=== PATIENT | male | born 1990 | race Caucasian/White ===

== ENCOUNTER 2018-03-21 06:00 | Inpatient (IN) | payer OTHER ==
[~2018-03-21] VITALS: Ht 165.1 cm; Wt 81.6 kg
[2018-03-21 06:10] VITALS: BP_SYST 139
[2018-03-21] MEDS ORDERED: LORazepam 1 MG TABLET PO ONE (06:45)
[2018-03-21] MEDS ORDERED: FOLIC ACID 1 MG, THIAMINE HCL 100 MG, MAGNESIUM SULFATE 1 GM, MVI 10 ML in NACL 0.9% 1,... IV ONE (06:45)
[2018-03-21 06:56] LABS: BILIRUBIN,URINE NEGATIVE (NEGATIVE); BLOOD, URINE 1+ (NEGATIVE); CLARITY/URINE CLEAR (CLEAR); COLOR,URINE YELLOW (YELLOW); GLUCOSE,URINE NEGATIVE (NEGATIVE); KETONES,URINE NEGATIVE (NEGATIVE); LEUKOCYTE ESTERASE ,URINE NEGATIVE (NEGATIVE); NITRITE, URINE NEGATIVE (NEGATIVE); PROTEIN URINE 1+ (NEGATIVE); UROBILINOGEN,URINE 0.2 (0.2-1.0)
[2018-03-21 07:06] LABS: BACTERIA,URINE FEW /HPF (None Seen); RBC,URINE 0-3 /HPF (0-3); WBC,URINE 0-3 /HPF (0-3)
[2018-03-21 07:07] LABS: MUCUS,URINE None Seen /LPF (None Seen)
[2018-03-21 07:12] LABS: BARBITURATE, URINE NEGATIVE (NEG <=200); BENZODIAZEPINE, URINE POSITIVE (NEG <=150); CANNABINOID, URINE NEGATIVE (NEG <=50); COCAINE, URINE NEGATIVE (NEG <=150); METHAMPHETAMINES SCREEN,URINE NEGATIVE (NEG <=500); OPIATE, URINE NEGATIVE (NEG <=100); PHENCYCLIDINE SCREEN,URINE NEGATIVE (NEG <=25); UR TRICYCLIC ANTIDEPRESSANTS NEGATIVE (NEG <=300); URINE AMPHETAMINE NEGATIVE (NEG <=500); URINE METHADONE NEGATIVE (NEG <=200); URINE OXYCODONE SCREEN NEGATIVE (NEG <=100); URINE PROPOXYPHENE SCREEN NEGATIVE (NEG <=300)
[2018-03-21 07:12] LABS: BASOPHILS # (AUTO) 0.1 K/uL (0.0-0.2); BASOPHILS % (AUTO) 1.8 % (0.0-2.0); EOSINOPHILS # (AUTO) 0.2 K/uL (0.0-0.4); EOSINOPHILS % (AUTO) 3.1 % (0.0-4.0); HEMATOCRIT 50.7 % (36-54); HEMOGLOBIN 17.2 g/dL (14.0-18.0); LYMPHOCYTES # (AUTO) 1.6 K/uL (1.0-5.5); LYMPHOCYTES % (AUTO) 24.8 % (20.5-51.5); MEAN CORPUSCULAR HEMOGLOBIN 33 pg (27-31); MEAN CORPUSCULAR HGB CONC 34 % (32-36); MEAN CORPUSCULAR VOLUME 96 fL (79.0-98.0); MONOCYTES # (AUTO) 0.9 K/uL (0.0-1.0); MONOCYTES % (AUTO) 14.7 % (1.7-9.3); NEUTROPHILS # (AUTO) 3.6 K/uL (1.8-7.7); NEUTROPHILS % (AUTO) 55.6 % (40.0-70.0); PLATELET COUNT (AUTO) 186 K/uL (130-430); RED BLOOD CELL COUNT(AUTO) 5.26 MIL/uL (4.2-6.2); WHITE BLOOD COUNT (AUTO) 6.4 K/uL (4.8-10.8)
[2018-03-21 07:40] LABS: PROTHROMBIN TIME 9.8 SECS (9.5-12.5)
[2018-03-21 07:44] LABS: ANION GAP 11 (5-15); GLUCOSE 102 mg/dL (70-99); POTASSIUM 3.3 mmol/L (3.5-5.1); SODIUM SERUM 143 mmol/L (136-145)
[2018-03-21 07:45] LABS: ACETAMINOPHEN < 1 ug/mL (1-30)
[2018-03-21 07:47] LABS: ALANINE AMINOTRANSFERASE 66 U/L (12-78); ALBUMIN 3.4 g/dL (3.4-4.8); ASPARTATE AMINOTRANSFERASE 90 U/L (10-37); TOTAL BILIRUBIN 0.4 mg/dL (0.0-1.0)
[2018-03-21 07:51] LABS: CHLORIDE 104 mmol/L (98-107)
[2018-03-21 07:52] LABS: CALCIUM 8.6 mg/dL (8.4-11.0); CREATININE 0.95 mg/dL (0.55-1.30); GFR AFRICAN AMERICAN 120 mL/min (>90); UREA NITROGEN, BLOOD 5 mg/dL (8-21)
[2018-03-21 07:56] LABS: ALCOHOL, BLOOD 357 mg/dL (<10)
[2018-03-21 12:43] VITALS: BP_SYST 127
[2018-03-21] MEDS: D5NS 1,000 ML IV SCH ×2 (13:50→21:57)
[2018-03-21] MEDS: chlordiazePOXIDE HCL 25 MG CAPSULE PO SCH ×2 (14:25→21:53)
[2018-03-21 14:50] VITALS: BP_SYST 127
[2018-03-21 16:01] VITALS: BP_SYST 119
[2018-03-21] MEDS ORDERED: OXYMETAZOLINE HCL 0.05% NASAL SPRAY NS PRN (16:45)
[2018-03-21] MEDS ORDERED: DOCUSATE SODIUM 100 MG CAPSULE PO PRN (18:00)
[2018-03-21] MEDS ORDERED: ZOLPIDEM TARTRATE 5 MG TABLET PO PRN (18:00)
[2018-03-21] MEDS ORDERED: ACETAMINOPHEN 325 MG TABLET PO PRN (18:00)
[2018-03-21] MEDS ORDERED: MUPIROCIN 2% TOPICAL OINTMENT 22 GM NS PRN (18:00)
[2018-03-21] MEDS ORDERED: MAGNESIUM SULFATE 50 ML IV PRN (18:00)
[2018-03-21] MEDS ORDERED: MORPHINE 2 MG/ML INJ. SYRINGE IVP PRN ×2 (18:00)
[2018-03-21] MEDS: LORazepam 2 MG/ML VIAL IVP PRN (20:29)
[2018-03-21 20:33] VITALS: BP_SYST 128
[2018-03-21] MEDS: ONDANSETRON HCL 4 MG/2 ML VIAL IVP PRN (21:52)
[2018-03-22 00:06] VITALS: BP_SYST 124
[2018-03-22] MEDS: LORazepam 2 MG/ML VIAL IVP PRN ×2 (01:11→22:05)
[2018-03-22 06:06] LABS: CALCIUM 8.3 mg/dL (8.4-11.0); CREATININE 0.65 mg/dL (0.55-1.30); POTASSIUM 3.3 mmol/L (3.5-5.1)
[2018-03-22 06:10] LABS: EOSINOPHILS # (AUTO) 0.1 K/uL (0.0-0.4); LYMPHOCYTES # (AUTO) 0.7 K/uL (1.0-5.5); MEAN CORPUSCULAR HEMOGLOBIN 32 pg (27-31); RED CELL DISTRIBUTION WIDTH 14.3 % (9.0-15.0)
[2018-03-22] MEDS: D5NS 1,000 ML IV SCH ×2 (06:35→15:09)
[2018-03-22 06:55] LABS: HEMATOCRIT 43.3 % (36-54); HEMOGLOBIN 14.6 g/dL (14.0-18.0); RED BLOOD CELL COUNT(AUTO) 4.56 MIL/uL (4.2-6.2); WHITE BLOOD COUNT (AUTO) 4.7 K/uL (4.8-10.8)
[2018-03-22 06:56] LABS: BASOPHILS % (AUTO) 0.6 % (0.0-2.0); LYMPHOCYTES % (AUTO) 15.4 % (20.5-51.5); MEAN CORPUSCULAR HGB CONC 34 % (32-36); MEAN CORPUSCULAR VOLUME 95 fL (79.0-98.0); MONOCYTES # (AUTO) 0.8 K/uL (0.0-1.0); NEUTROPHILS # (AUTO) 3.1 K/uL (1.8-7.7); PLATELET COUNT (AUTO) 133 K/uL (130-430)
[2018-03-22 07:58] VITALS: BP_SYST 143
[2018-03-22] MEDS: POTASSIUM CHLORIDE 20 MEQ TAB.PRT.SR PO PRN (08:30)
[2018-03-22] MEDS: chlordiazePOXIDE HCL 25 MG CAPSULE PO SCH ×3 (08:30→20:47)
[2018-03-22] MEDS: ONDANSETRON HCL 4 MG/2 ML VIAL IVP PRN (08:32)
[2018-03-22 16:15] VITALS: BP_SYST 138
[2018-03-22 20:00] VITALS: BP_SYST 135
[2018-03-23] VITALS: BP_SYST 132
[2018-03-23] MEDS: D5NS 1,000 ML IV SCH ×3 (00:28→14:00)
[2018-03-23] MEDS: LORazepam 2 MG/ML VIAL IVP PRN (04:31)
[2018-03-23 06:28] LABS: BASOPHILS % (AUTO) 0.6 % (0.0-2.0); EOSINOPHILS # (AUTO) 0.1 K/uL (0.0-0.4); EOSINOPHILS % (AUTO) 1.8 % (0.0-4.0); HEMATOCRIT 47.2 % (36-54); HEMOGLOBIN 15.6 g/dL (14.0-18.0); LYMPHOCYTES # (AUTO) 0.8 K/uL (1.0-5.5); LYMPHOCYTES % (AUTO) 14.9 % (20.5-51.5); MEAN CORPUSCULAR HEMOGLOBIN 32 pg (27-31); MEAN CORPUSCULAR HGB CONC 33 % (32-36); MEAN CORPUSCULAR VOLUME 97 fL (79.0-98.0); MONOCYTES # (AUTO) 0.9 K/uL (0.0-1.0); MONOCYTES % (AUTO) 17.4 % (1.7-9.3); NEUTROPHILS # (AUTO) 3.6 K/uL (1.8-7.7); NEUTROPHILS % (AUTO) 65.3 % (40.0-70.0); PLATELET COUNT (AUTO) 136 K/uL (130-430); RED BLOOD CELL COUNT(AUTO) 4.86 MIL/uL (4.2-6.2); RED CELL DISTRIBUTION WIDTH 14.5 % (9.0-15.0); WHITE BLOOD COUNT (AUTO) 5.4 K/uL (4.8-10.8)
[2018-03-23 06:55] LABS: CALCIUM 8.6 mg/dL (8.4-11.0); CREATININE 0.71 mg/dL (0.55-1.30); POTASSIUM 3.2 mmol/L (3.5-5.1)
[2018-03-23] MEDS: POTASSIUM CHLORIDE 20 MEQ TAB.PRT.SR PO PRN (08:34)
[2018-03-23] MEDS: chlordiazePOXIDE HCL 25 MG CAPSULE PO SCH ×2 (08:40→14:30)
[2018-03-23] MEDS ORDERED: CITALOPRAM HYDROBROMIDE 20 MG TABLET PO SCH (09:00)
[2018-03-23 12:04] VITALS: BP_SYST 138
[2018-03-23] MEDS ORDERED: NALT50TA PO (14:28)
[2018-03-23 15:51] VITALS: BP_SYST 138
[2018-03-23 16:01] VITALS: BP_SYST 125
== END 2018-03-23 16:30 | disposition home or self-care (01) | DRG 42 ==
LOC: SED 06:00 → STU 11:48
PROVIDERS: ADMIT General Practice; ATTEND General Practice
DX: G31.2 Degeneration of nervous system due to alcohol (principal); F33.2 Major depressive disorder, recurrent severe without psychotic features; R45.851 Suicidal ideations; E87.6 Hypokalemia; F41.1 Generalized anxiety disorder; I10 Essential (primary) hypertension; F10.239 Alcohol dependence with withdrawal, unspecified; Z91.19 Patient's noncompliance with other medical treatment and regimen
CPT/HCPCS: 36415; 80048; 80053; 80307; 81000-TC; 83036; 83735-TC; 85025; 85610-TC; 93005; 96365; 96366; 99285; G0480; G0481; G0482; J2060; J2405; J3411; J3475; J3490; J7030; J7042

== ENCOUNTER 2018-04-24 22:40 | Emergency (ER) | payer OTHER ==
[~2018-04-24] VITALS: Ht 165.1 cm; Wt 79.4 kg
[~2018-04-24 22:40] MED LIST: NALT50TA PO
[2018-04-24 22:41] VITALS: BP_SYST 149
[2018-04-24] MEDS: LORazepam 2 MG/ML VIAL (FOR ER USE) IVP ONE (23:21)
[2018-04-24] MEDS: NACL 0.9% 1,000 ML IV ONE (23:21)
[2018-04-24] MEDS: KETOROLAC TROMETHAMINE 30 MG VIAL IVP ONE (23:22)
[2018-04-25] MEDS: LORazepam 2 MG/ML VIAL (FOR ER USE) IVP ONE (01:12)
[2018-04-25 01:30] VITALS: BP_SYST 118
== END 2018-04-25 01:30 | disposition home or self-care (01) ==
LOC: SED 22:40
DX: F10.239 Alcohol dependence with withdrawal, unspecified (principal); R00.2 Palpitations; M79.10 Myalgia, unspecified site
CPT/HCPCS: 93005; 96361; 96374; 96375; 96376; 99283; J1885; J2060 ×2; J7030

== ENCOUNTER 2018-05-02 04:28 | Emergency (ER) | payer OTHER ==
[~2018-05-02] VITALS: Ht 165.1 cm; Wt 71.7 kg
[2018-05-02 04:28] VITALS: BP_SYST 132
[2018-05-02 05:06] LABS: BILIRUBIN,URINE NEGATIVE (NEGATIVE); BLOOD, URINE 1+ (NEGATIVE); CLARITY/URINE CLEAR (CLEAR); COLOR,URINE YELLOW (YELLOW); GLUCOSE,URINE NEGATIVE (NEGATIVE); KETONES,URINE NEGATIVE (NEGATIVE); LEUKOCYTE ESTERASE ,URINE NEGATIVE (NEGATIVE); NITRITE, URINE NEGATIVE (NEGATIVE); PH,URINE 7.5 (5.0-8.0); PROTEIN URINE NEGATIVE (NEGATIVE); UROBILINOGEN,URINE 0.2 (0.2-1.0)
[2018-05-02 05:16] LABS: BACTERIA,URINE FEW /HPF (None Seen); MUCUS,URINE None Seen /LPF (None Seen); WBC,URINE 0-3 /HPF (0-3); YEAST,URINE None Seen /HPF (None Seen)
[2018-05-02 05:22] LABS: BARBITURATE, URINE NEGATIVE (NEG <=200); BENZODIAZEPINE, URINE POSITIVE (NEG <=150); CANNABINOID, URINE NEGATIVE (NEG <=50); COCAINE, URINE NEGATIVE (NEG <=150); METHAMPHETAMINES SCREEN,URINE NEGATIVE (NEG <=500); OPIATE, URINE NEGATIVE (NEG <=100); PHENCYCLIDINE SCREEN,URINE NEGATIVE (NEG <=25); UR TRICYCLIC ANTIDEPRESSANTS NEGATIVE (NEG <=300); URINE AMPHETAMINE NEGATIVE (NEG <=500); URINE METHADONE NEGATIVE (NEG <=200); URINE OXYCODONE SCREEN NEGATIVE (NEG <=100); URINE PROPOXYPHENE SCREEN NEGATIVE (NEG <=300)
[2018-05-02] MEDS ORDERED: NACL 0.9% 1,000 ML IV ONE (05:30)
[2018-05-02 06:19] LABS: EOSINOPHILS # (AUTO) 0.1 K/uL (0.0-0.4); MONOCYTES # (AUTO) 0.9 K/uL (0.0-1.0)
[2018-05-02 06:21] LABS: BASOPHILS % (AUTO) 0.7 % (0.0-2.0); EOSINOPHILS % (AUTO) 2.4 % (0.0-4.0); HEMATOCRIT 47.6 % (36-54); HEMOGLOBIN 16.6 g/dL (14.0-18.0); LYMPHOCYTES % (AUTO) 27.5 % (20.5-51.5); MEAN CORPUSCULAR HEMOGLOBIN 34 pg (27-31); MEAN CORPUSCULAR HGB CONC 35 % (32-36); MEAN CORPUSCULAR VOLUME 97 fL (79.0-98.0); MONOCYTES % (AUTO) 24.1 % (1.7-9.3); NEUTROPHILS # (AUTO) 1.8 K/uL (1.8-7.7); NEUTROPHILS % (AUTO) 45.3 % (40.0-70.0); PLATELET COUNT (AUTO) 149 K/uL (130-430); RED BLOOD CELL COUNT(AUTO) 4.91 MIL/uL (4.2-6.2); RED CELL DISTRIBUTION WIDTH 14.5 % (9.0-15.0); WHITE BLOOD COUNT (AUTO) 3.8 K/uL (4.8-10.8)
[2018-05-02 06:49] LABS: INR 0.9 (0.80-1.20); PROTHROMBIN TIME 9.7 SECS (9.5-12.5)
[2018-05-02 06:51] LABS: CALCIUM 8.4 mg/dL (8.4-11.0); CREATININE 0.83 mg/dL (0.55-1.30); POTASSIUM 3.3 mmol/L (3.5-5.1)
[2018-05-02 06:55] LABS: ALBUMIN 3.6 g/dL (3.4-4.8); TOTAL BILIRUBIN 0.5 mg/dL (0.0-1.0)
== END 2018-05-02 06:11 | disposition left against medical advice (07) ==
LOC: SED 04:28
DX: F10.129 Alcohol abuse with intoxication, unspecified (principal); R11.10 Vomiting, unspecified; R25.1 Tremor, unspecified; Y90.8 Blood alcohol level of 240 mg/100 ml or more
CPT/HCPCS: 36415; 80053; 80307; 81000; 83690; 85025; 85610; 93005; 96360; 99284; G0482; J7030

== ENCOUNTER 2018-05-05 14:49 | Emergency (ER) | payer OTHER ==
[~2018-05-05] VITALS: Ht 165.1 cm; Wt 72.6 kg
[2018-05-05 15:40] VITALS: BP_SYST 131
[2018-05-05] MEDS ORDERED: NACL 0.9% 1,000 ML IV ONE (17:00)
[2018-05-05] MEDS ORDERED: ONDANSETRON HCL 4 MG/2 ML VIAL IVP ONE (17:00)
[2018-05-05] MEDS ORDERED: FOLIC ACID 1 MG, THIAMINE HCL 100 MG, MAGNESIUM SULFATE 1 GM, MVI 10 ML in NACL 0.9% 1,... IV ONE (17:15)
[2018-05-05] MEDS: LORazepam 2 MG/ML VIAL IVP ONE ×2 (17:30→17:32)
[2018-05-05] MEDS ORDERED: LORazepam 2 MG/ML VIAL (FOR ER USE) IVP ONE (17:30)
[2018-05-05 17:36] LABS: CLARITY/URINE CLEAR (CLEAR); COLOR,URINE YELLOW (YELLOW)
[2018-05-05 17:37] LABS: BILIRUBIN,URINE NEGATIVE (NEGATIVE); BLOOD, URINE 1+ (NEGATIVE); GLUCOSE,URINE NEGATIVE (NEGATIVE); KETONES,URINE 1+ (NEGATIVE); LEUKOCYTE ESTERASE ,URINE NEGATIVE (NEGATIVE); NITRITE, URINE NEGATIVE (NEGATIVE); PROTEIN URINE 2+ (NEGATIVE)
[2018-05-05 17:53] LABS: BACTERIA,URINE FEW /HPF (None Seen); MUCUS,URINE None Seen /LPF (None Seen); WBC,URINE 0-3 /HPF (0-3); YEAST,URINE None Seen /HPF (None Seen)
[2018-05-05 17:54] LABS: BARBITURATE, URINE NEGATIVE (NEG <=200); BENZODIAZEPINE, URINE POSITIVE (NEG <=150); CANNABINOID, URINE POSITIVE (NEG <=50); COCAINE, URINE NEGATIVE (NEG <=150); METHAMPHETAMINES SCREEN,URINE NEGATIVE (NEG <=500); OPIATE, URINE NEGATIVE (NEG <=100); PHENCYCLIDINE SCREEN,URINE NEGATIVE (NEG <=25); UR TRICYCLIC ANTIDEPRESSANTS NEGATIVE (NEG <=300); URINE AMPHETAMINE NEGATIVE (NEG <=500); URINE METHADONE NEGATIVE (NEG <=200); URINE OXYCODONE SCREEN NEGATIVE (NEG <=100); URINE PROPOXYPHENE SCREEN NEGATIVE (NEG <=300)
[2018-05-05 17:54] LABS: HEMATOCRIT 50.6 % (36-54); HEMOGLOBIN 17.3 g/dL (14.0-18.0); MEAN CORPUSCULAR HEMOGLOBIN 33 pg (27-31); MEAN CORPUSCULAR HGB CONC 34 % (32-36); MEAN CORPUSCULAR VOLUME 98 fL (79.0-98.0); PLATELET COUNT (AUTO) 134 K/uL (130-430); RED BLOOD CELL COUNT(AUTO) 5.17 MIL/uL (4.2-6.2); RED CELL DISTRIBUTION WIDTH 14.2 % (9.0-15.0); WHITE BLOOD COUNT (AUTO) 3.9 K/uL (4.8-10.8)
[2018-05-05 17:57] LABS: PROTHROMBIN TIME 10.2 SECS (9.5-12.5)
[2018-05-05 18:05] LABS: CALCIUM 8.5 mg/dL (8.4-11.0); CREATININE 1.06 mg/dL (0.55-1.30); TOTAL BILIRUBIN 0.6 mg/dL (0.0-1.0)
[2018-05-05 18:06] LABS: ALBUMIN 3.6 g/dL (3.4-4.8)
[2018-05-05 18:30] LABS: BAND % (MANUAL) 5 % (0-6); BASOPHILS % (MANUAL) 0 % (0-2); EOSINOPHILS % (MANUAL) 5 % (0-7); LYMPHOCYTES % (MANUAL) 42 % (20-46); MONOCYTES % (MANUAL) 15 % (0-11)
[2018-05-05 21:30] VITALS: BP_SYST 130
== END 2018-05-05 21:30 | disposition home or self-care (01) ==
LOC: SED 14:49
DX: F10.129 Alcohol abuse with intoxication, unspecified (principal); F12.90 Cannabis use, unspecified, uncomplicated; F13.90 Sedative, hypnotic, or anxiolytic use, unspecified, uncomplicated; Y90.8 Blood alcohol level of 240 mg/100 ml or more
CPT/HCPCS: 36415; 71045; 80053; 80307; 81000; 82150; 82550; 83690; 84484; 85007; 85027; 85610; 85730; 93005; 96365; 96375; 99284; G0482; J2060; J2405; J3411; J3475; J3490; J7030

== ENCOUNTER 2018-05-28 21:59 | Emergency (ER) | payer OTHER ==
[~2018-05-28] VITALS: Ht 165.1 cm; Wt 72.6 kg
[2018-05-28 22:18] VITALS: BP_SYST 126
== END 2018-05-28 23:21 | disposition left against medical advice (07) ==
LOC: SED 21:59
DX: S01.81XD Laceration without foreign body of other part of head, subsequent encounter (principal); R10.30 Lower abdominal pain, unspecified; R05 Cough; X58.XXXD Exposure to other specified factors, subsequent encounter; Z53.21 Procedure and treatment not carried out due to patient leaving prior to being seen by health care provider

== ENCOUNTER 2018-06-11 21:57 | Emergency (ER) | payer OTHER ==
[~2018-06-11] VITALS: Ht 165.1 cm; Wt 72.6 kg
[2018-06-11 22:06] VITALS: BP_SYST 151
[2018-06-11] MEDS ORDERED: FOLIC ACID 1 MG, THIAMINE HCL 100 MG, MAGNESIUM SULFATE 1 GM, MVI 10 ML in NACL 0.9% 1,... IV ONE (22:45)
[2018-06-11] MEDS ORDERED: chlordiazePOXIDE HCL 25 MG CAPSULE PO ONE (22:45)
[2018-06-11] MEDS ORDERED: FOLIC ACID 5 MG/ML VIAL IV ONE (22:54)
[2018-06-11] MEDS ORDERED: THIAMINE HCL 100 MG/ML VIAL ONE (22:54)
[2018-06-11] MEDS ORDERED: MAGNESIUM SULFATE 1 GM/2 ML VIAL ONE (22:54)
[2018-06-11] MEDS ORDERED: MVI 10 ML VIAL IV ONE ×2 (22:54→23:11)
[2018-06-11 23:01] LABS: BASOPHILS % (AUTO) 1.3 % (0.0-2.0); EOSINOPHILS # (AUTO) 0.2 K/uL (0.0-0.4); EOSINOPHILS % (AUTO) 5.5 % (0.0-4.0); HEMATOCRIT 49.5 % (36-54); HEMOGLOBIN 16.5 g/dL (14.0-18.0); LYMPHOCYTES # (AUTO) 1.1 K/uL (1.0-5.5); LYMPHOCYTES % (AUTO) 31.8 % (20.5-51.5); MEAN CORPUSCULAR HEMOGLOBIN 33 pg (27-31); MEAN CORPUSCULAR HGB CONC 33 % (32-36); MEAN CORPUSCULAR VOLUME 99 fL (79.0-98.0); MONOCYTES # (AUTO) 0.8 K/uL (0.0-1.0); MONOCYTES % (AUTO) 22.2 % (1.7-9.3); NEUTROPHILS # (AUTO) 1.4 K/uL (1.8-7.7); PLATELET COUNT (AUTO) 292 K/uL (130-430); RED CELL DISTRIBUTION WIDTH 13.1 % (9.0-15.0); WHITE BLOOD COUNT (AUTO) 3.5 K/uL (4.8-10.8)
[2018-06-11 23:11] LABS: ANION GAP 8 (5-15); CHLORIDE 105 mmol/L (98-107); GLUCOSE 110 mg/dL (70-99); POTASSIUM 3.2 mmol/L (3.5-5.1); SODIUM SERUM 145 mmol/L (136-145); UREA NITROGEN, BLOOD 10 mg/dL (8-21)
[2018-06-11 23:12] LABS: GFR AFRICAN AMERICAN 146 mL/min (>90)
[2018-06-11 23:16] LABS: PROTHROMBIN TIME 9.8 SECS (9.5-12.5)
[2018-06-11 23:18] LABS: ALANINE AMINOTRANSFERASE 81 U/L (12-78); ALBUMIN 3.4 g/dL (3.4-4.8); ASPARTATE AMINOTRANSFERASE 97 U/L (10-37); TOTAL BILIRUBIN 0.2 mg/dL (0.0-1.0)
[2018-06-11 23:21] LABS: ACETAMINOPHEN < 1 ug/mL (1-30); ALCOHOL, BLOOD 409 mg/dL (<10)
[2018-06-11 23:33] LABS: NEUTROPHILS % (AUTO) 39.2 % (40.0-70.0)
[2018-06-11] MEDS ORDERED: POTASSIUM CHLORIDE 20 MEQ TAB.PRT.SR PO ONE (23:45)
[2018-06-12] MEDS ORDERED: chlordiazePOXIDE HCL 25 MG CAPSULE PO ONE (01:00)
[2018-06-12 01:23] VITALS: BP_SYST 97
== END 2018-06-12 01:23 | disposition home or self-care (01) ==
LOC: SED 21:57
DX: F10.10 Alcohol abuse, uncomplicated (principal); F17.200 Nicotine dependence, unspecified, uncomplicated; R03.0 Elevated blood-pressure reading, without diagnosis of hypertension; Y90.8 Blood alcohol level of 240 mg/100 ml or more
CPT/HCPCS: 36415; 80053; 85025; 85610; 85730; 96365; 96366; 99284; G0480; G0481; G0482; J3411; J3475; J3490

== ENCOUNTER 2018-06-25 17:58 | Emergency (ER) | payer OTHER ==
[~2018-06-25] VITALS: Ht 165.1 cm; Wt 70.3 kg
[2018-06-25 18:35] VITALS: BP_SYST 136
== END 2018-06-25 19:55 | disposition left against medical advice (07) ==
LOC: SED 17:58
DX: M25.512 Pain in left shoulder (principal); F10.129 Alcohol abuse with intoxication, unspecified; Z53.21 Procedure and treatment not carried out due to patient leaving prior to being seen by health care provider; W19.XXXA Unspecified fall, initial encounter; Y93.89 Activity, other specified; Y92.89 Other specified places as the place of occurrence of the external cause; Y99.8 Other external cause status
CPT/HCPCS: 73030; 99281

== ENCOUNTER 2018-06-28 18:58 | Emergency (ER) | payer OTHER ==
[~2018-06-28] VITALS: Ht 165.1 cm; Wt 70.3 kg
[2018-06-28 19:03] VITALS: BP_SYST 141
--- NOTE | 2018-06-28 19:07 | NUR ---
Patient triaged and placed in waiting room. VSS and patient appears in no acute distress at this time. Accompanied by self, awaiting available bed, and MD notified of need for MSE.
--- NOTE | 2018-06-28 19:17 | NUR ---
Patient to ER bed 2 to gown for evaluation. Side rails up.
--- NOTE | 2018-06-28 20:00 | NUR ---
PT MOVED TO ER BED [address].
--- NOTE | 2018-06-28 20:01 | NUR ---
ER at bedside examining patient.
--- NOTE | 2018-06-28 20:12 | NUR ---
PT TAKEN TO RADIOLOGY AWAKE VIA WHEELCHAIR.
--- NOTE | 2018-06-28 21:13 | NUR ---
DR CATES EXAMINING THE PT.
--- NOTE | 2018-06-28 21:24 | NUR ---
Patient given written and verbal discharge instructions BY DR CATES and verbalizes understanding. ER MD discussed with patient the results and treatment provided. Patient in stable condition. ID arm band removed. Rx of NAPROSYN given. Patient educated on pain management and to follow up with PMD. Pain Scale 7/10. Opportunity for questions provided and answered. Medication side effect fact sheet provided.
[2018-06-28] MEDS ORDERED: IBUPROFEN 600 MG TABLET PO ONE (21:30)
[2018-06-28 21:35] VITALS: BP_SYST 135
== END 2018-06-28 21:35 | disposition home or self-care (01) ==
LOC: SED 18:58
DX: S42.251A Displaced fracture of greater tuberosity of right humerus, initial encounter for closed fracture (principal); Z79.899 Other long term (current) drug therapy; X58.XXXA Exposure to other specified factors, initial encounter; Y93.89 Activity, other specified; Y92.89 Other specified places as the place of occurrence of the external cause; Y99.8 Other external cause status
CPT/HCPCS: 73030; 99283

== ENCOUNTER 2018-07-01 18:23 | Emergency (ER) | payer OTHER ==
[~2018-07-01] VITALS: Ht 165.1 cm; Wt 70.3 kg
[2018-07-01 19:00] VITALS: BP_SYST 136
[2018-07-01] MEDS ORDERED: KETOROLAC TROMETHAMINE 60 MG/2 ML VIAL IM ONE (19:30)
== END 2018-07-01 19:25 | disposition left against medical advice (07) ==
LOC: SED 18:23
DX: S42.251D Displaced fracture of greater tuberosity of right humerus, subsequent encounter for fracture with routine healing (principal); Z53.20 Procedure and treatment not carried out because of patient's decision for unspecified reasons; W19.XXXD Unspecified fall, subsequent encounter
CPT/HCPCS: 99281; J7030

== ENCOUNTER 2018-07-29 20:55 | Emergency (ER) | payer OTHER ==
[~2018-07-29] VITALS: Ht 167.6 cm; Wt 70.8 kg
[2018-07-29 22:00] VITALS: BP_SYST 116
[2018-07-29 23:04] LABS: HEMATOCRIT 47.5 % (36-54); HEMOGLOBIN 16.5 g/dL (14.0-18.0); MEAN CORPUSCULAR HEMOGLOBIN 35 pg (27-31); MEAN CORPUSCULAR HGB CONC 35 % (32-36); MEAN CORPUSCULAR VOLUME 100 fL (79.0-98.0); RED BLOOD CELL COUNT(AUTO) 4.74 MIL/uL (4.2-6.2); WHITE BLOOD COUNT (AUTO) 5.3 K/uL (4.8-10.8)
[2018-07-29 23:05] LABS: BASOPHILS % (AUTO) 0.6 % (0.0-2.0); EOSINOPHILS # (AUTO) 0.2 K/uL (0.0-0.4); LYMPHOCYTES # (AUTO) 2.1 K/uL (1.0-5.5); LYMPHOCYTES % (AUTO) 40.1 % (20.5-51.5); MONOCYTES # (AUTO) 0.9 K/uL (0.0-1.0); MONOCYTES % (AUTO) 17.7 % (1.7-9.3); NEUTROPHILS % (AUTO) 38.6 % (40.0-70.0); PLATELET COUNT (AUTO) 198 K/uL (130-430); RED CELL DISTRIBUTION WIDTH 13.1 % (9.0-15.0)
[2018-07-29 23:08] LABS: BARBITURATE, URINE NEGATIVE (NEG <=200); BENZODIAZEPINE, URINE POSITIVE (NEG <=150); CANNABINOID, URINE NEGATIVE (NEG <=50); COCAINE, URINE NEGATIVE (NEG <=150); METHAMPHETAMINES SCREEN,URINE POSITIVE (NEG <=500); OPIATE, URINE NEGATIVE (NEG <=100); PHENCYCLIDINE SCREEN,URINE NEGATIVE (NEG <=25); UR TRICYCLIC ANTIDEPRESSANTS NEGATIVE (NEG <=300); URINE AMPHETAMINE NEGATIVE (NEG <=500); URINE METHADONE NEGATIVE (NEG <=200); URINE OXYCODONE SCREEN NEGATIVE (NEG <=100); URINE PROPOXYPHENE SCREEN NEGATIVE (NEG <=300)
[2018-07-29 23:09] LABS: ANION GAP 12 (5-15); CALCIUM 8.3 mg/dL (8.4-11.0); CHLORIDE 107 mmol/L (98-107); CREATININE 0.84 mg/dL (0.55-1.30); GLUCOSE 123 mg/dL (70-99); POTASSIUM 3.8 mmol/L (3.5-5.1); SODIUM SERUM 143 mmol/L (136-145); UREA NITROGEN, BLOOD 5 mg/dL (8-21)
[2018-07-29 23:13] LABS: GFR AFRICAN AMERICAN 138 mL/min (>90)
[2018-07-29 23:16] LABS: ALANINE AMINOTRANSFERASE 42 U/L (12-78); ALBUMIN 3.7 g/dL (3.4-4.8); ALCOHOL, BLOOD 397 mg/dL (<10); ASPARTATE AMINOTRANSFERASE 43 U/L (10-37); TOTAL BILIRUBIN 0.2 mg/dL (0.0-1.0)
[2018-07-29 23:17] LABS: ACETAMINOPHEN < 1 ug/mL (1-30)
[2018-07-29] MEDS ORDERED: NACL 0.9% 1,000 ML IV ONE (23:30)
== END 2018-07-29 23:30 | disposition left against medical advice (07) ==
LOC: SED 20:55
DX: F10.129 Alcohol abuse with intoxication, unspecified (principal); F19.129 Other psychoactive substance abuse with intoxication, unspecified; M25.511 Pain in right shoulder; Z53.20 Procedure and treatment not carried out because of patient's decision for unspecified reasons; Y90.8 Blood alcohol level of 240 mg/100 ml or more
CPT/HCPCS: 36415; 80053; 80307; 85025; 99283; G0480; G0481; G0482; J7030

== ENCOUNTER 2018-08-22 14:17 | Emergency (ER) | payer OTHER ==
[~2018-08-22] VITALS: Ht 165.1 cm; Wt 70.8 kg
[2018-08-22 14:22] VITALS: BP_SYST 120
--- NOTE | 2018-08-22 14:30 | NUR ---
Pt to bed 2 via wheelchair, unsteady gait.
--- NOTE | 2018-08-22 14:45 | NUR ---
Patient presented to ER with c/o "alcohol withdrawal" . Patient A&Ox4, ambulatory, afebrile, skin pink, respirations equal bilat, c/o sensativity to light, pain 7/10, shakiness, Nausea, denies V/D. Patient states he has been drinking 750ml bottle vodka per day for 2 weeks. Patient arrived with mother ambulatory. Ekg completed upon arrival and pt placed on personnel monitor & pulse-ox.
--- NOTE | 2018-08-22 14:54 | NUR ---
ER Dr. Rome at bedside examining patient.
[2018-08-22] MEDS ORDERED: LORazepam 2 MG/ML VIAL IM ONE (15:00)
[2018-08-22] MEDS ORDERED: NACL 0.9% 1,000 ML IV ONE (15:00)
[2018-08-22] MEDS ORDERED: LORazepam 2 MG/ML VIAL IVP ONE (15:15)
[2018-08-22] MEDS ORDERED: LORazepam 2 MG/ML VIAL (FOR ER USE) IVP ONE (15:30)
[2018-08-22 15:33] LABS: BASOPHILS % (AUTO) 0.6 % (0.0-2.0); EOSINOPHILS # (AUTO) 0.1 K/uL (0.0-0.4); EOSINOPHILS % (AUTO) 2.5 % (0.0-4.0); HEMATOCRIT 51.5 % (36-54); HEMOGLOBIN 17.5 g/dL (14.0-18.0); LYMPHOCYTES # (AUTO) 1.8 K/uL (1.0-5.5); LYMPHOCYTES % (AUTO) 38.8 % (20.5-51.5); MEAN CORPUSCULAR HEMOGLOBIN 34 pg (27-31); MEAN CORPUSCULAR HGB CONC 34 % (32-36); MEAN CORPUSCULAR VOLUME 100 fL (79.0-98.0); MONOCYTES # (AUTO) 0.7 K/uL (0.0-1.0); MONOCYTES % (AUTO) 15.2 % (1.7-9.3); NEUTROPHILS % (AUTO) 42.9 % (40.0-70.0); PLATELET COUNT (AUTO) 163 K/uL (130-430); RED BLOOD CELL COUNT(AUTO) 5.13 MIL/uL (4.2-6.2); RED CELL DISTRIBUTION WIDTH 12.8 % (9.0-15.0); WHITE BLOOD COUNT (AUTO) 4.7 K/uL (4.8-10.8)
[2018-08-22 15:36] LABS: CALCIUM 8.6 mg/dL (8.4-11.0); CREATININE 0.83 mg/dL (0.55-1.30); POTASSIUM 3.3 mmol/L (3.5-5.1)
[2018-08-22 15:41] LABS: ALBUMIN 3.8 g/dL (3.4-4.8); TOTAL BILIRUBIN 0.5 mg/dL (0.0-1.0)
--- NOTE | 2018-08-22 16:29 | NUR ---
PT ELOPED OUT BACK AMBULANCE DOORS, PT TOOK OUT IV AND LEFT. SEEN LEAVING WITH FRIEND IN CAR.
[2018-08-22 16:31] VITALS: BP_SYST 120
== END 2018-08-22 16:31 | disposition left against medical advice (07) ==
LOC: SED 14:17
DX: F10.129 Alcohol abuse with intoxication, unspecified (principal)
CPT/HCPCS: 36415; 71045; 80053; 84484; 85025; 93005; 96374; 99284; J2060; J7030

== ENCOUNTER 2019-03-21 20:09 | Emergency (ER) | payer OTHER ==
[~2019-03-21] VITALS: Ht 167.6 cm; Wt 69.9 kg
[2019-03-21 20:17] VITALS: BP_SYST 154
--- NOTE | 2019-03-21 20:31 | NUR ---
Patient to ER bed 3 to gown for evaluation. Side rails up. Report given to Bernard PETERS by Pratik PETERS.
--- NOTE | 2019-03-21 20:50 | NUR ---
# 20 gauge angiocath placed to LT HAND. Use of asceptic technique. Opsite placed over site. Blood return noted. Blood for lab drawn from site. Flushed with 10 cc of normal saline. No evidence of infiltration noted. Patient tolerated well.
--- NOTE | 2019-03-21 21:06 | NUR ---
ER Dr. Collier at bedside examining patient.
--- NOTE | 2019-03-21 21:20 | NUR ---
Written orders recieved by Dr. Collier. IV banana bag, Protonix 40mg IVP, Zofran 4mg IVP, Ativan 1mg IVP, Librium 25mg PO have been given. Tolerated patient well, will continue to monitor.
--- NOTE | 2019-03-21 21:35 | NUR ---
Pt C/O chest pain and SOB since his morning. Pt has hx of alcohol use and consumed 400ml of Vodka yesterday. Denies any N/V or any other symptoms at this time. Will continue to monitor.
[2019-03-21] MEDS ORDERED: MAGNESIUM SULFATE 1 GM/2 ML VIAL ONE (21:36)
[2019-03-21] MEDS ORDERED: THIAMINE HCL 100 MG/ML VIAL ONE (21:36)
[2019-03-21] MEDS ORDERED: FOLIC ACID 5 MG/ML VIAL IV ONE (21:36)
[2019-03-21] MEDS ORDERED: MVI 10 ML VIAL IV ONE (21:37)
[2019-03-21] MEDS ORDERED: PANTOPRAZOLE SODIUM 40 MG/VIAL (PROTONIX) ONE (21:38)
[2019-03-21] MEDS ORDERED: ONDANSETRON HCL 4 MG/2 ML VIAL ONE (21:38)
[2019-03-21] MEDS ORDERED: LORazepam 2 MG/ML VIAL ONE (21:54)
[2019-03-22] MEDS ORDERED: METOPROLOL TARTRATE 25 MG TABLET ONE (00:08)
[2019-03-22] MEDS ORDERED: chlordiazePOXIDE HCL 25 MG CAPSULE ONE (00:19)
[2019-03-22 00:27] VITALS: BP_SYST 136
--- NOTE | 2019-03-22 00:27 | NUR ---
Patient given written and verbal discharge instructions and verbalizes understanding. ER MD discussed with patient the results and treatment provided. Patient in stable condition. ID arm band removed. IV catheter removed intact and dressing applied, no active bleeding. Rx of Chlordiazepoxide given. Patient educated on pain management and to follow up with PMD. Pain Scale 0. Opportunity for questions provided and answered. Medication side effect fact sheet provided.
[2019-03-22 11:04] LABS: BARBITURATE, URINE NEGATIVE (NEG <=200); URINE AMPHETAMINE NEGATIVE (NEG <=500)
[2019-03-22 11:05] LABS: BENZODIAZEPINE, URINE NEGATIVE (NEG <=150); CANNABINOID, URINE NEGATIVE (NEG <=50); COCAINE, URINE NEGATIVE (NEG <=150); METHAMPHETAMINES SCREEN,URINE NEGATIVE (NEG <=500); OPIATE, URINE NEGATIVE (NEG <=100); PHENCYCLIDINE SCREEN,URINE NEGATIVE (NEG <=25); UR TRICYCLIC ANTIDEPRESSANTS NEGATIVE (NEG <=300); URINE METHADONE NEGATIVE (NEG <=200); URINE OXYCODONE SCREEN NEGATIVE (NEG <=100); URINE PROPOXYPHENE SCREEN NEGATIVE (NEG <=300)
[2019-03-22 11:57] LABS: CALCIUM 9.1 mg/dL (8.4-11.0); CREATININE 0.84 mg/dL (0.55-1.30); POTASSIUM 3.3 mmol/L (3.5-5.1); TOTAL BILIRUBIN 1.3 mg/dL (0.0-1.0)
[2019-03-22 11:58] LABS: ALBUMIN 4.1 g/dL (3.4-4.8)
[2019-03-22 11:59] LABS: HEMATOCRIT 45.8 % (36-54); MEAN CORPUSCULAR HEMOGLOBIN 33 pg (27-31); MEAN CORPUSCULAR HGB CONC 35 % (32-36); MEAN CORPUSCULAR VOLUME 94 fL (79.0-98.0); PLATELET COUNT (AUTO) 308 K/uL (130-430); RED BLOOD CELL COUNT(AUTO) 4.86 MIL/uL (4.2-6.2); RED CELL DISTRIBUTION WIDTH 12.2 % (9.0-15.0); WHITE BLOOD COUNT (AUTO) 11.9 K/uL (4.8-10.8)
[2019-03-22 12:00] LABS: BASOPHILS % (AUTO) 0.3 % (0.0-2.0); LYMPHOCYTES # (AUTO) 1.3 K/uL (1.0-5.5); LYMPHOCYTES % (AUTO) 11.2 % (20.5-51.5); MONOCYTES # (AUTO) 0.8 K/uL (0.0-1.0); MONOCYTES % (AUTO) 6.4 % (1.7-9.3); NEUTROPHILS # (AUTO) 9.8 K/uL (1.8-7.7); NEUTROPHILS % (AUTO) 82.1 % (40.0-70.0)
== END 2019-03-22 00:27 | disposition home or self-care (01) ==
LOC: SED 20:09
DX: F10.239 Alcohol dependence with withdrawal, unspecified (principal); F10.229 Alcohol dependence with intoxication, unspecified; R07.89 Other chest pain; Y90.3 Blood alcohol level of 60-79 mg/100 ml
CPT/HCPCS: 36415; 71045; 80053; 80307; 83690; 85025; 93005; 96365; 96372; 96375; 99284; C9113; G0482; J2060; J2405; J3411; J3475; J3490; J7030

== ENCOUNTER 2019-04-19 21:12 | Emergency (ER) | payer OTHER ==
[~2019-04-19] VITALS: Ht 167.6 cm; Wt 70.8 kg
[2019-04-19 21:26] VITALS: BP_SYST 147
--- NOTE | 2019-04-19 21:32 | NUR ---
Patient triaged and placed in waiting room. VSS and patient appears in no acute distress at this time. Accompanied by mother, awaiting available bed, and MD notified of need for MSE.
[2019-04-19 22:12] LABS: BASOPHILS # (AUTO) 0.1 K/uL (0.0-0.2); CALCIUM 7.6 mg/dL (8.4-11.0); CREATININE 0.93 mg/dL (0.55-1.30); EOSINOPHILS % (AUTO) 0.5 % (0.0-4.0); HEMATOCRIT 47.2 % (36-54); HEMOGLOBIN 16.6 g/dL (14.0-18.0); LYMPHOCYTES # (AUTO) 2.1 K/uL (1.0-5.5); LYMPHOCYTES % (AUTO) 33.2 % (20.5-51.5); MEAN CORPUSCULAR HEMOGLOBIN 33 pg (27-31); MEAN CORPUSCULAR HGB CONC 35 % (32-36); MEAN CORPUSCULAR VOLUME 93 fL (79.0-98.0); MONOCYTES # (AUTO) 0.6 K/uL (0.0-1.0); MONOCYTES % (AUTO) 9.1 % (1.7-9.3); NEUTROPHILS # (AUTO) 3.5 K/uL (1.8-7.7); NEUTROPHILS % (AUTO) 56.2 % (40.0-70.0); PLATELET COUNT (AUTO) 310 K/uL (130-430); POTASSIUM 3.4 mmol/L (3.5-5.1); RED BLOOD CELL COUNT(AUTO) 5.09 MIL/uL (4.2-6.2); RED CELL DISTRIBUTION WIDTH 12.4 % (9.0-15.0); WHITE BLOOD COUNT (AUTO) 6.2 K/uL (4.8-10.8)
[2019-04-19 22:19] LABS: ALBUMIN 4.2 g/dL (3.4-4.8); TOTAL BILIRUBIN 0.4 mg/dL (0.0-1.0)
--- NOTE | 2019-04-19 23:15 | NUR ---
Patient left without being seen. No further treatmen provided. ER MD aware
--- NOTE | 2019-04-19 23:15 | NUR ---
Pt called from waiting room, no answer. Pt not found in waiting room, bathroom, or outside of ED.
== END 2019-04-19 23:15 | disposition left against medical advice (07) ==
LOC: SED 21:12
DX: F10.129 Alcohol abuse with intoxication, unspecified (principal); Z53.21 Procedure and treatment not carried out due to patient leaving prior to being seen by health care provider
CPT/HCPCS: 36415; 80053; 85025; 99281; G0482

== ENCOUNTER 2019-05-04 13:16 | Emergency (ER) | payer OTHER ==
[~2019-05-04] VITALS: Ht 167.6 cm; Wt 70.8 kg
[2019-05-04] MEDS ORDERED: NACL 0.9% 1,000 ML IV ONE (13:27)
[2019-05-04] MEDS ORDERED: FOLIC ACID 1 MG, THIAMINE HCL 100 MG, MAGNESIUM SULFATE 1 GM, MVI 10 ML in NACL 0.9% 1,... IV ONE (13:30)
[2019-05-04 13:38] VITALS: BP_SYST 131
--- NOTE | 2019-05-04 13:52 | NUR ---
Patient to ER bed 03 to gown for evaluation. Side rails up.
--- NOTE | 2019-05-04 13:55 | NUR ---
Patient arrived in the ED accompanied by his mother for alcohol intoxication. Patient stated his last drink was this morning - Vodka. Patient is arousable, respirations even and unlabored, speaking in full sentences and ambulating with a steady gait. VSS, pain level 0/10. Informed of wait time. Mother at bedside. Instructed to notify ED staff for any changes in condition while waiting to be seen by the doctor. Patient verbalized understanding.
[2019-05-04 13:57] LABS: BILIRUBIN,URINE NEGATIVE (NEGATIVE); BLOOD, URINE NEGATIVE (NEGATIVE); CLARITY/URINE CLEAR (CLEAR); COLOR,URINE YELLOW (YELLOW); GLUCOSE,URINE NEGATIVE (NEGATIVE); KETONES,URINE NEGATIVE (NEGATIVE); LEUKOCYTE ESTERASE ,URINE NEGATIVE (NEGATIVE); NITRITE, URINE NEGATIVE (NEGATIVE); PH,URINE 6.5 (5.0-8.0); PROTEIN URINE NEGATIVE (NEGATIVE); UROBILINOGEN,URINE 0.2 (0.2-1.0)
[2019-05-04 14:07] LABS: BARBITURATE, URINE NEGATIVE (NEG <=200); BENZODIAZEPINE, URINE POSITIVE (NEG <=150); CANNABINOID, URINE NEGATIVE (NEG <=50); COCAINE, URINE NEGATIVE (NEG <=150); METHAMPHETAMINES SCREEN,URINE NEGATIVE (NEG <=500); OPIATE, URINE NEGATIVE (NEG <=100); PHENCYCLIDINE SCREEN,URINE NEGATIVE (NEG <=25); UR TRICYCLIC ANTIDEPRESSANTS NEGATIVE (NEG <=300); URINE AMPHETAMINE NEGATIVE (NEG <=500); URINE METHADONE NEGATIVE (NEG <=200); URINE OXYCODONE SCREEN NEGATIVE (NEG <=100); URINE PROPOXYPHENE SCREEN NEGATIVE (NEG <=300)
[2019-05-04 14:17] LABS: BASOPHILS # (AUTO) 0.1 K/uL (0.0-0.2); BASOPHILS % (AUTO) 1.4 % (0.0-2.0); EOSINOPHILS % (AUTO) 0.9 % (0.0-4.0); HEMATOCRIT 45.5 % (36-54); HEMOGLOBIN 15.6 g/dL (14.0-18.0); LYMPHOCYTES # (AUTO) 2.2 K/uL (1.0-5.5); LYMPHOCYTES % (AUTO) 41.3 % (20.5-51.5); MEAN CORPUSCULAR HEMOGLOBIN 32 pg (27-31); MEAN CORPUSCULAR HGB CONC 34 % (32-36); MEAN CORPUSCULAR VOLUME 95 fL (79.0-98.0); MONOCYTES # (AUTO) 0.8 K/uL (0.0-1.0); MONOCYTES % (AUTO) 14.6 % (1.7-9.3); NEUTROPHILS # (AUTO) 2.2 K/uL (1.8-7.7); NEUTROPHILS % (AUTO) 41.8 % (40.0-70.0); PLATELET COUNT (AUTO) 258 K/uL (130-430); RED BLOOD CELL COUNT(AUTO) 4.81 MIL/uL (4.2-6.2); RED CELL DISTRIBUTION WIDTH 13.5 % (9.0-15.0); WHITE BLOOD COUNT (AUTO) 5.3 K/uL (4.8-10.8)
--- NOTE | 2019-05-04 14:20 | NUR ---
ER at bedside examining patient.
[2019-05-04 14:22] LABS: CALCIUM 8.3 mg/dL (8.4-11.0); CREATININE 0.81 mg/dL (0.55-1.30); POTASSIUM 3.5 mmol/L (3.5-5.1)
[2019-05-04 14:42] LABS: TOTAL BILIRUBIN 0.7 mg/dL (0.0-1.0)
[2019-05-04] MEDS ORDERED: MVI 10 ML VIAL IV ONE (14:47)
[2019-05-04] MEDS ORDERED: THIAMINE HCL 100 MG/ML VIAL ONE (14:47)
[2019-05-04] MEDS ORDERED: FOLIC ACID 5 MG/ML VIAL IV ONE (14:47)
[2019-05-04] MEDS ORDERED: MAGNESIUM SULFATE 1 GM/2 ML VIAL ONE (14:47)
--- NOTE | 2019-05-04 14:50 | NUR ---
# 18 gauge angiocath placed to RAC. Use of asceptic technique. Opsite placed over site. Blood return noted. Flushed with 10 cc of normal saline. No evidence of infiltration noted. Patient tolerated well.
--- NOTE | 2019-05-04 14:50 | NUR ---
Administered Banana Bag IV as ordered by Dr. Claudio. Patient tolerated the medications well.
--- NOTE | 2019-05-04 16:30 | NUR ---
Patient pulled out his IV. Ambulated to the bathroom with a steady gait.
[2019-05-04 16:47] LABS: PROTHROMBIN TIME 10.1 SECS (9.5-12.5)
[2019-05-04 17:23] VITALS: BP_SYST 110
== END 2019-05-04 17:23 | disposition left against medical advice (07) ==
LOC: SED 13:16
DX: F10.229 Alcohol dependence with intoxication, unspecified (principal); F13.10 Sedative, hypnotic or anxiolytic abuse, uncomplicated; Y90.8 Blood alcohol level of 240 mg/100 ml or more
CPT/HCPCS: 36415; 71045; 80053; 80307; 81003; 82150; 83605; 83690; 84484; 85025; 85610; 85730; 87040; 96365; 96366; 99284; G0482; J3411; J3475; J3490; J7030

== ENCOUNTER 2019-05-07 00:12 | Emergency (ER) | payer OTHER ==
--- NOTE | 2019-05-07 00:30 | NUR ---
Patient left without being triaged/seen. No further treatment provided. ER MD aware
--- NOTE | 2019-05-07 00:30 | NUR ---
Patient left without being seen. No further treatment needed. ER MD aware
--- NOTE | 2019-05-07 00:30 | NUR ---
Called pt in, no answer
== END 2019-05-07 00:30 | disposition left against medical advice (07) ==
LOC: SED 00:12
DX: T50.905A Adverse effect of unspecified drugs, medicaments and biological substances, initial encounter (principal); Z53.21 Procedure and treatment not carried out due to patient leaving prior to being seen by health care provider; Y92.89 Other specified places as the place of occurrence of the external cause

== ENCOUNTER 2020-01-27 13:14 | Emergency (ER) | payer OTHER ==
[~2020-01-27] VITALS: Ht 165.1 cm; Wt 79.4 kg
[2020-01-27 13:40] VITALS: BP_SYST 134
--- NOTE | 2020-01-27 13:40 | NUR ---
Placed in room 05 . Placed on color television console monitor, blood pressure machine and pulse oximeter. To gown for exam. Side rails up. Report given to LORRAINE STROUD.
--- NOTE | 2020-01-27 13:42 | NUR ---
Patient presented to ER C/O Alcohol intoxication. Patient ambulatory to ER , afebrile, skin pink & warm, denies pain, nausea present denies /V/D. Patient states his last alcoholic drink yesterday, feels like he is dehydrated, and feels anxious and has nausea.
--- NOTE | 2020-01-27 14:08 | NUR ---
ER Dr. STYLES at bedside examining patient.
[2020-01-27] MEDS ORDERED: ONDANSETRON HCL 4 MG/2 ML VIAL IVP ONE (14:15)
[2020-01-27] MEDS ORDERED: NACL 0.9% 1,000 ML IV ONE (14:15)
[2020-01-27 15:30] VITALS: BP_SYST 142
--- NOTE | 2020-01-27 15:30 | NUR ---
Patient given written and verbal discharge instructions and verbalizes understanding. ER MD discussed with patient the results and treatment provided. Patient in stable condition. ID arm band removed. IV catheter removed intact and dressing applied, no active bleeding. Rx of ZOFRAN & LIBRIUM given. Patient educated on pain management and to follow up with PMD. Pain Scale 0/10. Opportunity for questions provided and answered. Medication side effect fact sheet provided.
== END 2020-01-27 15:30 | disposition home or self-care (01) ==
LOC: SED 13:14
DX: F10.239 Alcohol dependence with withdrawal, unspecified (principal)
CPT/HCPCS: 93005; 96361; 96374; 99283; J2405; J7030